=== PATIENT | male | born 1955 | race Caucasian/White ===

== ENCOUNTER → 2017-02-11 | Outpatient (CLI) | payer OTHER ==
[~2017-02-11] VITALS: Ht 177.8 cm; Wt 127.0 kg
[~2017-02-11] MED LIST: AMARYL2 MG PO; ASPIR 8181 M1 PO; JARDIANCE25 MG PO; LIPITOR40 MG PO; PRINIVIL10 MG PO
[2017-02-11 10:15] LABS: POINT-OF-CARE METER ID UU14107333
[2017-02-11 11:54] LABS: POINT-OF-CARE METER ID UU13113819
== END | disposition home or self-care (01) ==
LOC: AMB 09:28
PROVIDERS: Surgery
PROC: 0DBK8ZX Excision of Ascending Colon, Via Natural or Artificial Opening Endoscopic, Diagnostic (ICD-10-PCS; principal; 2017-02-11)
DX: Z12.11 Encounter for screening for malignant neoplasm of colon (principal); D12.2 Benign neoplasm of ascending colon; K64.1 Second degree hemorrhoids; I10 Essential (primary) hypertension; E11.9 Type 2 diabetes mellitus without complications; E66.9 Obesity, unspecified; Z68.41 Body mass index [BMI] 40.0-44.9, adult; Z86.010 Personal history of colon polyps; Z79.82 Long term (current) use of aspirin; Q43.8 Other specified congenital malformations of intestine
CPT/HCPCS: 82948; 88305